=== PATIENT | female | born 1950 | race Caucasian/White ===

== ENCOUNTER → 2018-08-28 11:22 | Outpatient (CLI) | payer MEDICARE, OTHER, SELFPAY ==
--- NOTE | 2018-08-28 | DI.RAD.S_ITS ---
PROCEDURE: XR LUMBAR SPINE 2-3V INDICATIONS: lOW BACK PAIN TECHNIQUE: 3 views of the lumbar spine were acquired. COMPARISON: None. FINDINGS: Bones: No fracture or focal osseous destruction. Straightening of the normal lumbar. Multilevel degenerative endplate sclerosis and spurring. Diffuse facet arthropathy. Severe narrowing of the L4-L5 disc space and mild narrowing of the remaining lumbar disc spaces. Soft tissues: Incidentally noted multiple gallstones project in the right upper quadrant. IMPRESSION: Severe L4-L5 disc degeneration. Mild lumbar discogenic changes elsewhere. Diffuse facet arthropathy. Incidentally noted cholelithiasis. Dictated by: Shane Wyatt M.D. on 08/28/2018 at 14:07 Approved by: Shane Wyatt M.D. on 08/28/2018 at 14:09
== END ==
PROVIDERS: PCP Family Medicine; Visit Provider Chiropractor
DX: M54.5 Low back pain (principal); M47.816 Spondylosis without myelopathy or radiculopathy, lumbar region; M51.36 Other intervertebral disc degeneration, lumbar region; M48.061 Spinal stenosis, lumbar region without neurogenic claudication; M62.49 Contracture of muscle, multiple sites; K80.20 Calculus of gallbladder without cholecystitis without obstruction
CPT/HCPCS: 72100

== ENCOUNTER → 2018-09-04 18:27 | Outpatient (CLI) | payer MEDICARE, OTHER, SELFPAY ==
--- NOTE | 2018-09-04 18:29 | DI.MRI.S_ITS ---
PROCEDURE: MR LUMBAR SPINE WO CON INDICATIONS: LOWER BACK PAIN TECHNIQUE: Noncontrast sagittal T1 spin echo and T2 fast echo, sagittal STIR, axial T1 and T2 fast spin echo through the lumbar spine. In cases with scoliosis, additional coronal T2 fast spin echo may be performed. COMPARISON: [facility], CR, XR LUMBAR SPINE 2-3V, 08/28/2018, 11:33. FINDINGS: Image quality: Excellent. Alignment and Curvature: Straightening of the normal lumbar lordosis Bone Marrow: Multilevel degenerative endplate sclerosis and spurring. Diffuse facet arthropathy. Compression fracture involving the L3 endplate with associated acute marrow edema. There is minimal height loss. Spinal Cord: Conus medullaris terminates at the L1 level. Visualized cord demonstrates normal signal and size. Paraspinous Soft Tissues: No paravertebral masses. 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 L1-L2: Normal appearance. L2-L3: Broad-based posterior disc bulge and bilateral facet arthropathy. Minimal central canal narrowing. No definite effacement of the lateral recesses. No foraminal stenosis bilaterally L3-L4: Broad-based posterior disc bulge bilateral facet arthropathy. Minimal central canal. lateral recesses appear grossly patent. No definite foraminal stenosis. L4-L5: Posterior annular fissure and broad-based posterior disc bulge. Bilateral facet arthropathy. Mild central canal narrowing. Mild partial effacement of both lateral recesses. Mild right foraminal narrowing with minimal compression of the nerve root. There is also mild left foraminal stenosis with minimal compression of the nerve root. L5-S1: No definite canal or lateral recess narrowing. Bilateral facet arthropathy. No foraminal stenosis. IMPRESSION: L3 compression fracture involving the inferior endplate with acute marrow edema. No high-grade canal stenosis. No foraminal stenosis. Dictated by: Shane Wyatt M.D. on 09/05/2018 at 9:03 Approved by: Shane Wyatt M.D. on 09/05/2018 at 9:29
== END ==
PROVIDERS: PCP Family Medicine; Visit Provider Family Medicine
DX: M54.5 Low back pain (principal); M48.56XA Collapsed vertebra, not elsewhere classified, lumbar region, initial encounter for fracture
CPT/HCPCS: 72148

== ENCOUNTER 2018-09-12 09:29 | Day surgery (SDC) | payer MEDICARE, OTHER, SELFPAY ==
[2018-09-11 07:11] VITALS: BMI 27.0
[2018-09-12] VITALS (10 sets, daily range): BP systolic 111–146; BP diastolic 70–87; PULSE 64–99; RESP 10–94; TEMP 36.1–36.7; O2SAT 93–99; BMI 27.0
--- NOTE | 2018-09-12 | DI.RAD.S_ITS ---
PROCEDURE: XR LUMBAR SPINE 2-3V INDICATIONS: L-3 KYPHOPLASTY TECHNIQUE: 6 intraoperative fluoroscopic views of the lumbar spine were acquired. COMPARISON: [facility], [facility], XR LUMBAR SPINE 2-3V, 08/28/2018, 11:33. FINDINGS: Intraoperative fluoroscopy of the lumbar spine demonstrates surgical devices projecting obliquely into the L3 vertebra before and after injection of radiodense material into the right and left aspects of the vertebra. IMPRESSION: Intraoperative fluoroscopy used for kyphoplasty at L3. Dictated by: Sandra Peres M.D. on 09/12/2018 at 15:48 Approved by: Sandra Peres M.D. on 09/12/2018 at 15:50
--- NOTE | 2018-09-12 | PATH_ITS ---
[facility] Accession Number: [id number] . 01 Material submitted: . back - L3 VERTEBRAE . 01 Diagnosis: Bone, L3 Vertebra, Core Biopsy: Fragment of bone with mild chronic nonspecific inflammation, fibrosis, evidence of old hemorrhage, and associated reactive/reparative changes, see comment. Negative for malignancy. MRV/09/17/2018 . 01 Comment: Initial and deeper levels have been examined and the findings are nonspecific, mild inflammation and reactive/reparative changes, as well as areas of hemosiderin-laden macrophages suggestive of old hemorrhage. . There is no evidence of metastatic carcinoma (JJ immunostain is negative). . * This test was developed and its performance characteristics determined by [facility]. It has not been cleared or approved by the U.S. Food and Drug Administration. The FDA has determined that such clearance or approval is not necessary. This test is used for clinical purposes. It should not be regarded as investigational or for research. . 01 Electronically signed: . Brain Hernandez MD, Pathologist NPI- [id number] . 01 Gross description: . Received in formalin, labeled L3 vertebra, is a core biopsy of walters gritty bone (length-0.6 cm, diameter-0.2 cm). Decalcified and submitted intact in cassette A1. ([id number]) /FRR . 01 Pathologist provided ICD-10: M24.28 . 01 CPT . 819224, [id number] Performed at: [address], [place], [place] [id number] MD Iam Marin MD Phone: [phone]
[2018-09-12] MEDS: LACTATED RINGERS 1,000 ML 42 ML IV (10:23)
[2018-09-12 10:47] LABS: Add Manual Diff / Slide Review NO; Basophils Absolute Auto 0 /uL (0-100); Basophils Percent Auto 0.8 % (0-2); Eosinophils Absolute Auto 200 /uL (0-450); Eosinophils Percent Auto 3.1 % (2-4); Hemoglobin 14.3 g/dL (12.0-16.0); Lymphocytes Absolute Auto 1300 /uL (1100-4500); Mean Corpuscular HGB Conc 32.5 % (30-36); Mean Corpuscular Hemoglobin 34.1 PG (26-34); Mean Corpuscular Volume 104.8 fL (80-100); Monocytes Absolute Auto 700 /uL (0-900); Neutrophils Absolute Auto 3300 /uL (1500-7000); Neutrophils Percent Auto 60.1 % (50-75); Platelet Count 197 X10^3/uL (150-400); Red Cell Distribution Width 17.8 % (11.6-14.8); White Blood Cell Count 5.4 X10^3/uL (4.5-11.0)
--- NOTE | 2018-09-12 10:58 | PM.PREOP ---
Pre-operative Note Interval Note History & Physical reviewed/Exam performed by Physician: Yes Changes to H&P: No
[2018-09-12] MEDS: CEFAZOLIN 2 GM/100 ML FROZ.PIGGY IV (11:47)
--- NOTE | 2018-09-12 12:07 | SUR.OPER ---
Prone on spine table, head in foam head support, padded chest and pelvic supports, gel pad at knees, lower legs supported by pillows; nipples, genitalia and toes free of pressure, arms secured on foam padded arm boards at <90 degrees abduction. Tape over blanket at thigh secured to table.
[2018-09-12] MEDS: BUPIVACAINE 0.25% W/ EPI 30 ML VIAL 60 ML INJ (12:24)
--- NOTE | 2018-09-12 12:26 | PM.OP.1 ---
Operative Date/Time/Diagnoses Date of procedure: 09/12/18 Time of procedure: 12:26 Pre-op diagnosis: L3 compression fracture Osteoporosis Back pain Post-op diagnosis: same Procedure & Clinicians Procedure: L3 kyphoplasty Same procedure as scheduled: Yes Indications: [age] year old female with intractable pain from an acute L3 compression fracture. They had failed conservative management and requested operative intervention. Risks and benefits of surgery were discussed and appropriate consents were obtained. Surgeon: Gaurav Vasquez Click Yes if Unassisted: Yes Anesthesia Type: General Operative Notes Findings: None Closure Type: primary Specimen(s): other (L3 vertebral biopsy) Estimated Blood Loss (mL): 1 Procedure in detail: The patient was brought to the operating room and intubated on the table. They were then rolled over to the well-padded prone position. Time-out was performed. We confirmed positioning with two fluoroscopy views. The back was prepped and draped in the standard sterile fashion. Preoperative antibiotics were given. Using fluoroscopic guidance, the planned incision site was infiltrated with Marcaine with epinephrine and injected down to the entry site of the left pedicle of L3. A small stab incision was made and we advanced a Jamshiedi needle down the left pedicle into the vertebral body. A bone biopsy was harvested from this and sent to pathology. We then passed the DFine osteotome and opened it up to create a void inside the vertebral body. We then began injecting the cement. This was done with frequent fluoroscopy imaging. There was no extravasation. She had some cement going posteriorly and nothing going across to the opposite side. I stopped injecting on this side and went over to the right. Again we used Marcaine for local anesthetic. A small stab incision was made. A Jamshidi needle was advanced down the right L3 pedicle under fluoroscopic guidance. We created a void with the osteotome. We then began injecting cement on the right side. This flowed in well and she had excellent fill. Once we had good fill of the L3 vertebral body the injection was stopped and the trocars were removed. Final x-rays were taken. The wound was cleaned. Steri-Strips and sterile dressing were placed. Patient was rolled over, extubated, and brought to recovery without complications. Complications: none Condition: stable Disposition: PACU Plan for aftercare: Outpatient. Activity as tolerated.
[2018-09-12] MEDS: fentaNYL 100 MCG/2 ML INJ 50 MCG IV ×2 (12:45→12:55)
[2018-09-12] MEDS: LORazepam 2 MG/ML SYRINGE 0.25 MG IV (13:28)
[2018-09-12] MEDS: OXYCODONE/ACETAMINOPHEN 5/325 TABLET 1 TAB PO (13:46)
== END 2018-09-12 14:38 | disposition home or self-care (01) ==
PROVIDERS: PCP Family Medicine; Visit Provider Orthopaedic Surgery
PROC: (CPT 22514; principal; 2018-09-12 12:15)
DX: S32.030A Wedge compression fracture of third lumbar vertebra, initial encounter for closed fracture (principal); M80.08XA Age-related osteoporosis with current pathological fracture, vertebra(e), initial encounter for fracture; M54.9 Dorsalgia, unspecified; R00.2 Palpitations; E03.9 Hypothyroidism, unspecified
CPT/HCPCS: 22514; 72100; 76000; 85025; 88305; 88342; 93005; 93010; C1776; J0330; J0690; J1100; J2060; J2250; J2405; J2704; J3010

== ENCOUNTER → 2018-10-06 14:27 | Outpatient (CLI) | payer MEDICARE, OTHER, SELFPAY | PROVIDERS: PCP Family Medicine; Visit Provider Family Medicine | DX: Z13.820 Encounter for screening for osteoporosis (principal); M81.0 Age-related osteoporosis without current pathological fracture; Z78.0 Asymptomatic menopausal state; E07.9 Disorder of thyroid, unspecified | CPT/HCPCS: 77080 ==

== ENCOUNTER → 2019-03-06 15:42 | Outpatient (CLI) | payer MEDICARE, OTHER, SELFPAY ==
--- NOTE | 2019-03-06 | DI.MRI.S_ITS ---
PROCEDURE: MR LUMBAR SPINE WO CON INDICATIONS: Radiculopathy, lumbosacral region TECHNIQUE: Noncontrast sagittal T1 spin echo and T2 fast echo, sagittal STIR, axial T1 and T2 fast spin echo through the lumbar spine. In cases with scoliosis, additional coronal T2 fast spin echo may be performed. COMPARISON: [facility], CR, XR LUMBAR SPINE WITH OLBIQUES PLUS FLEXION EXTENSION, 02/24/2019, 11:21. [facility], MR, MR LUMBAR SPINE WO CON, 09/04/2018, 19:08. FINDINGS: Image quality: Excellent. Alignment and Curvature: 5 lumbar type vertebral bodies are present by plain film. There is mild grade 1 retrolisthesis of L1 on L2, L2 on L3, and L3 on L4. Bone Marrow: Marrow is of normal overall signal. No acute vertebral body compression fractures. Spinal Cord: Conus medullaris terminates at the upper L1 level. Visualized cord demonstrates normal signal and size. Paraspinous Soft Tissues: No paravertebral masses. L1-L2: Mild facet hypertrophy. No significant canal, nor foraminal stenosis. No change. L2-L3: Mild disc height loss and desiccation. Mild diffuse disc bulge. Mild facet hypertrophy bilaterally. Mild canal stenosis. Mild bilateral foraminal stenosis. No change. L3-L4: Mild disc height loss and desiccation. Mild diffuse disc bulge. Mild facet and ligamentum flavum hypertrophy. Mild epidural lipomatosis. Mild canal stenosis. Mild bilateral foraminal stenosis. No change. L4-L5: Severe disc height loss and desiccation. Mild diffuse disc bulge. Mild facet hypertrophy bilaterally. Mild canal stenosis. Mild bilateral foraminal stenosis. No change. L5-S1: Mild facet hypertrophy bilaterally. No significant canal, nor foraminal stenosis. No change. IMPRESSION: 1. Multilevel degenerative disc and facet disease, as well as ligamentum flavum hypertrophy and epidural lipomatosis. 2. Mild multilevel canal and foraminal stenoses. Dictated by: Carol Torres M.D. on 03/06/2019 at 16:47 Approved by: Carol Torres M.D. on 03/06/2019 at 16:50
== END ==
PROVIDERS: PCP Family Medicine; Visit Provider Physical Medicine & Rehabilitation
DX: M51.16 Intervertebral disc disorders with radiculopathy, lumbar region (principal); E88.2 Lipomatosis, not elsewhere classified; M48.061 Spinal stenosis, lumbar region without neurogenic claudication
CPT/HCPCS: 72148

== ENCOUNTER → 2020-01-29 13:50 | Outpatient (CLI) | payer MEDICARE, OTHER, SELFPAY ==
--- NOTE | 2020-01-29 | DI.MRI.S_ITS ---
PROCEDURE: MR LUMBAR SPINE WO CON INDICATIONS: Other intervertebral disc degeneration, lumbar reg TECHNIQUE: Noncontrast sagittal T1 spin echo and T2 fast echo, sagittal STIR, axial T1 and T2 fast spin echo through the lumbar spine. In cases with scoliosis, additional coronal T2 fast spin echo may be performed. COMPARISON: [facility] [place], CR, XR LUMBAR SPINE WITH OLBIQUES PLUS FLEXION EXTENSION, 02/24/2019, 11:21. [facility], MR, MR LUMBAR SPINE WO CON, 03/06/2019, 15:50. [facility], CR, XR LUMBAR SPINE 2-3V, 09/12/2018, 12:10. [facility], MR, MR LUMBAR SPINE WO CON, 09/04/2018, 19:08. [facility], CR, XR LUMBAR SPINE 2-3V, 08/28/2018, 11:33. [facility] [place], CR, XR LUMBAR SPINE 2 OR 3 VIEWS, 01/20/2020, 15:30. FINDINGS: Image quality: Excellent. Alignment and Curvature: There is normal bony alignment. Bones: Postprocedural changes compatible L3 percutaneous kyphoplasty stable compared to prior exams. Reactive endplate changes noted adjacent to the L4-L5 disc. No acute vertebral body compression fractures. Spinal Cord: Conus medullaris terminates at the T12-L1 disc level. Visualized cord demonstrates normal signal and size. Paraspinous Soft Tissues: No paravertebral masses. L1-L2: Normal appearance. L2-L3: Loss of disc signal and height. Mild, diffuse disc bulge. Mild narrowing of the central canal. Mild bilateral neural foraminal narrowing. No neural compression. L3-L4: Loss of disc signal. Mild, diffuse disc bulge. Mild bilateral facet hypertrophy. Mild narrowing of the central canal. Mild bilateral neural foraminal narrowing. No neural compression. L4-L5: Loss of disc signal and height. Mild, diffuse disc bulge. Mild bilateral facet hypertrophy. Mild to moderate narrowing of the central canal. Moderate right and mild left neural foraminal narrowing. No neural compression. L5-S1: Loss of disc signal. Minimal, diffuse disc bulge. Mild bilateral facet hypertrophy. No central stenosis. No neural foraminal narrowing. No neural compression. Fissure noted in the left lateral annulus. IMPRESSION: 1. Multilevel degenerative disc disease. 2. Multilevel facet arthropathy. 3. Mild to moderate L4-L5 central canal narrowing. Mild L2-L3 and L3-L4 central canal narrowing. 4. Moderate right and mild left L4-L5 neural foraminal narrowing. Mild bilateral L2-L3 and L3-L4 neural foraminal narrowing. 5. No neural compression. 6. L5-S1 disc annulus fissure. 7. Status post L3 percutaneous kyphoplasty. Dictated by: Belinda Rucker MD, PhD on 01/29/2020 at 15:39 Approved by: Belinda Rucker MD, PhD on 01/29/2020 at 15:49
== END ==
PROVIDERS: PCP Family Medicine; Referring Provider Family Medicine; Visit Provider Orthopaedic Surgery
DX: M51.36 Other intervertebral disc degeneration, lumbar region (principal); M47.816 Spondylosis without myelopathy or radiculopathy, lumbar region; M47.817 Spondylosis without myelopathy or radiculopathy, lumbosacral region; M48.061 Spinal stenosis, lumbar region without neurogenic claudication
CPT/HCPCS: 72148

== ENCOUNTER → 2023-07-16 | Outpatient (CLI) | payer MEDICARE, OTHER, SELFPAY ==
--- NOTE | 2023-07-16 14:43 | DI.RAD.S_ITS ---
Bone Density Report Name: SARBJIT OLIVIA Age: 73 Sex: Female Ethnicity: White Date of : 1950 Indication: osteopenia; monitoring treatment; prior fracture; Referring Provider: MARIANA JUNG Study: Bone densitometry was performed. Exam Date: July 16, 2023 Accession number: [id number] Bone Density: Region BMD T-score Z-score Classification AP Spine(L1, L2, L4) 0.780 -2.3 -0.1 Osteopenia Femoral Neck (Left) 0.514 -3.0 -1.1 Osteoporosis Total Hip (Left) 0.687 -2.1 -0.5 Osteopenia Femoral Neck (Right) 0.513 -3.0 -1.1 Osteoporosis Total Hip (Right) 0.671 -2.2 -0.6 Osteopenia Total Hip Mean 0.679 -2.2 -0.6 Osteopenia World Health Organization criteria for BMD impression classify patients as: Normal (T-score at or above -1.0), Osteopenia (T-score between -1.0 and -2.5), or Osteoporosis (T-score at or below -2.5). 10-year Fracture Risk: FRAX not reported because: Some T-score for Spine Total or Hip Total or Femoral Neck at or below -2.5 Prior hip or vertebral fracture Treated for osteoporosis Previous Exams: -- Region Exam Age BMD T-score BMD Change BMD Change Date g/cm2 vs Baseline vs Previous -- AP Spine (L1-L2,L4) 07/16/2023 73 0.780 -2.3 -0.049 (-5.9%)# -0.049 (-5.9%)# 10/06/2018 68 0.829 -1.9 Total Hip(Left) 07/16/2023 73 0.687 -2.1 0.038 (5.8%)# 0.038 (5.8%)# 10/06/2018 68 0.649 -2.4 Total Hip(Right) 07/16/2023 73 0.671 -2.2 0.024 (3.7%)# 0.024 (3.7%)# 10/06/2018 68 0.647 -2.4 -- *Denotes significance at 95% confidence level, LSC for AP Spine = 0.022 g/cm2, LSC for Total Hip = 0.027 g/cm2 # Denotes dissimilar scan types or analysis methods Impression: The patient has established osteoporosis, based on the Left Femoral Neck T-score and the existence of a prior fracture. The patient has risk factors, including: previous fracture. No significant bone loss was observed. Discussion: PATIENT UNDER TREATMENT WITH NO SIGNIFICANT BMD LOSS SINCE LAST EXAM. In an untreated patient, BMD typically declines with age. A lack of decline or gain is usually a sign that treatment is efficacious and fracture risk is reduced. It is important to ask patients whether they are taking their medications and to encourage continued and appropriate compliance with their osteoporosis therapies to reduce fracture risk. It is also important to review their risk factors and encourage appropriate calcium and vitamin D intakes, exercise, fall prevention and other lifestyle measures. Follow-Up: Consider a repeat BMD and Vertebral Fracture Assessment (VFA) exam in 2 years or sooner if medically necessary, to reassess this patient's status. Reported by: [facility] TIRSO WRIGHT M.D. on 07/16/2023 3:05:00 PM.
== END ==
PROVIDERS: PCP Family Medicine; Referring Provider Family Medicine; Visit Provider Family Medicine
DX: M81.0 Age-related osteoporosis without current pathological fracture (principal)
CPT/HCPCS: 77080